=== PATIENT | male | born 1990 | race African-American/Black ===

== ENCOUNTER 2024-11-09 10:52 | Day surgery (SDC) | payer MEDICARE, SELFPAY ==
[2024-11-07 10:34] VITALS: BMI 35.3
[2024-11-09 12:56] VITALS: BP 136/75; PULSE 82; RESP 18; TEMP 36.7; O2SAT 98
[2024-11-09] MEDS: LACTATED RINGERS 1000ML 1,000 ML 50 ML IV (13:02)
--- NOTE | 2024-11-09 13:49 | EXP.HP ---
History of Present Illness *Admission Date: 11/09/24 *Reason for visit:: Abnormal CAT scan with change in bowel habits *History of present illness: Mr. Shea is a 34-year-old gentleman who is here for diagnostic colonoscopy secondary to a change in bowel habits and abnormal CAT scan. His CAT scan at [facility] that showed inflammation and swelling but the report is not available. The examination is deemed medically necessary for diagnostic colonoscopy. The patient has been seen, interviewed and examined prior to the procedure by both myself and the anesthesia provider. [facility] Disclaimer: The information contained in this section may have been updated after the patient was seen, as this information can be updated by other users. Medical History (Updated 11/09/24 @ 12:54 by Leia Barrera RN) No significant past medical history Surgical History (Updated 11/09/24 @ 12:54 by Leia Barrera RN) No significant past surgical history Family History (Updated 11/09/24 @ 12:54 by Leia Barrera RN) Other No significant family history Social History (Updated 11/09/24 @ 12:54 by Leia Barrera RN) Smoking Status: Current every day smoker alcohol intake: never substance use type: denies use current occupational status: unemployed Travel in the last 8 weeks: None Have you lived/traveled outside US in past 30 days?: No Contact w/someone who lives/traveled outside US past 30 days?: No Exposure to someone with infectious disease in past 14 days?: No Do you have a fever (greater than 100.4 F or 38 C)?: No Have you tested positive for COVID-19: No Exposed to someone with COVID-19 in past 14 days?: No Do you have a sore throat?: No Do you have a cough?: No Do you have any weakness?: No Do you have any diarrhea?: No Are you experiencing any unusual bleeding?: No Do you have any muscle aches/pain?: No Do you have any abdominal pain?: No Are you experiencing loss of taste or smell?: No Review of Systems Review of Systems Review of systems (narrative): Negative *Cardiovascular Comments: Negative *Gastrointestinal Comments: Negative *Genitourinary Comments: Negative *Musculoskeletal Comments: Negative *Neurologic Comments: Negative Meds Home Medications and Allergies Home Medications ?Medication ?Instructions ?Recorded ?Confirmed ?Type sertraline 100 mg tablet (Zoloft) 100 mg PO DAILY 08/15/24 11/09/24 History New Prescriptions to Start Prescriptions: Allergies Allergy/AdvReac Type Severity Reaction Status Date / Time No Known Allergies Allergy Verified 11/09/24 12:55 Exam Data for Last 24 hours Vital signs and Labs for Last 24 Hours: Temp Pulse Resp BP Pulse Ox O2 Del Method 98.1 F 82 18 136/75 98 Room Air 11/09/24 12:56 11/09/24 12:56 11/09/24 12:56 11/09/24 12:56 11/09/24 12:56 11/09/24 12:56 I & O for Last 24 hours: Intake & Output 11/06/24 11/07/24 11/08/24 11/09/24 23:59 23:59 23:59 23:59 Weight 275 lb *Routine HEENT Exam Head: Present normocephalic Eye: Present EOMI and PERRL ENT: Present mucous membranes moist *Routine Neck Exam Neck: Present supple *Routine Respiratory Exam Respiratory: Present CTA bilaterally *Routine Cardiovascular Exam Cardiovascular: Present RRR *Routine Abdominal Exam Abdominal: Present soft and normoactive bowel sounds; Absent tenderness *Routine Rectal Exam Rectal:: deferred *Routine Genitalia Exam Genitalia:: deferred *Routine Extremities Exam Extremities: Absent cyanosis, clubbing or edema *Routine Skin Exam Skin: Present warm; Absent rash *Routine Neurological Exam Neurological: Present alert and oriented X3 Assessment and Plan *Assessment and plan (1) Change in bowel habits: Status: Acute Category: Medical Code(s): R19.4 - Change in bowel habit (2) Constipation: Status: Acute Category: Medical Code(s): K59.00 - Constipation, unspecified (3) Abnormal CT scan, colon: Status: Acute Category: Medical Code(s): R93.3 - Abnormal findings on diagnostic imaging of other parts of digestive tract (4) Blood in stool: Status: Acute Category: Medical Code(s): K92.1 - Melena Plan A/P: 1. Change in bowel habits with constipation and abnormal CAT scan left colon is the preprocedural diagnosis. The patient will be anesthetized/sedated using MAC sedation. The patient has been seen and examined. Cardiac and lung assessment prior to the examination is stable. Proceed with planned diagnostic colonoscopy
--- NOTE | 2024-11-09 14:01 | P.PCN_ITS ---
[facility] Procedure Note Date: 11/09/24 Time: 14:17 Procedure Note:: Colonoscopy Procedure Report: Colonoscopy with cold snare polypectomy and monopolar ablation/coagulation of internal hemorrhoids Endoscopist: Tien Zuleta II, MD Referring physician: [facility], [address] [place] [address] , [place] [address] Date of Procedure: November 09, 2024 Equipment: Olympus 190 variable stiffness pediatric colonoscope Sedation: MAC sedation Indication: Mr. Shea is a 34-year-old gentleman who is here for diagnostic colonoscopy. He did have a change in his bowel habits about a year ago and he has had more constipation and going 2 or 3 days without a bowel movement. He has had some lower abdominal pain intermittently throughout the year. He did go to the emergency department in July and had a CAT scan that showed colonic inflammation . He does note some intermittent blood in the stool with his bowel movement and this last occurred a month or 2 ago. He reports no weight loss or family history of colon cancer. This is his first colonoscopy. Procedure: Prior to the procedure, a history and physical exam was performed, and patient's medications and allergies were reviewed. The risks, benefits and alternatives of the sedation and procedure were discussed with the patient. All questions were answered and informed consent was obtained. The patient was brought to the procedure room. Patient identification and proposed procedure were verified by the physician and the nurse. The patient was placed in a left lateral decubitus position and the scope was passed under direct vision. Throughout the procedure, the patient's blood pressure, pulse, and oxygen saturations were monitored continuously. The colonoscopy was accomplished without difficulty. The patient tolerated the procedure well. Findings: On digital rectal examination there was normal rectal tone. There were no external hemorrhoids. The colonoscope was introduced through the anal canal to the rectum and advanced to the cecum. The ileocecal valve and appendiceal orifice were identified. The scope was advanced a short distance into the ileum which appeared grossly normal. The scope was then withdrawn into the colon. The cecum, ascending, transverse, descending and sigmoid: Were grossly normal. There were no mucosal abnormalities identified. Within the rectum there were 3 diminutive 2 and 3 mm polyps that were removed via cold snare polypectomy (probable hyperplastic polyps). Upon retroflexion within the rectum there were grade 2 internal hemorrhoids. The columns of hemorrhoids were ablated/coagulated using monopolar force coagulation. The preparation was excellent throughout with [place] Preparation Score of 9. The cecal time was 12 minutes. Impression: 1. Diminutive rectal polyps x 3 (probable hyperplastic polyps) 2. Grade 2 internal hemorrhoids status post monopolar ablation/coagulation Plan: I would encourage a fiber bowel regimen (combined MiraLAX plus Citrucel mixed together every morning) on a long-term daily maintenance basis. I will follow- up the polyp histology.
[2024-11-09 14:03] VITALS: O2SAT 99
[2024-11-09 14:20] VITALS: BP 98/57; PULSE 87; RESP 18; O2SAT 99
[2024-11-09 14:30] VITALS: BP 125/81; PULSE 81; RESP 18; O2SAT 99
[2024-11-09 14:40] VITALS: BP 127/76; PULSE 80; RESP 18; O2SAT 99
--- NOTE | 2024-11-09 15:09 | EXP.ANES.CKL ---
[facility] Disclaimer: The information contained in this section may have been updated after the patient was seen, as this information can be updated by other users. Medical History (Updated 11/09/24 @ 12:54 by Leia Barrera RN) No significant past medical history Surgical History (Updated 11/09/24 @ 12:54 by Leia Barrera RN) No significant past surgical history Family History (Updated 11/09/24 @ 12:54 by Leia Barrera RN) Other No significant family history Social History (Updated 11/09/24 @ 12:54 by Leia Barrera RN) Smoking Status: Current every day smoker alcohol intake: never substance use type: denies use current occupational status: unemployed Travel in the last 8 weeks: None Have you lived/traveled outside US in past 30 days?: No Contact w/someone who lives/traveled outside US past 30 days?: No Exposure to someone with infectious disease in past 14 days?: No Do you have a fever (greater than 100.4 F or 38 C)?: No Have you tested positive for COVID-19: No Exposed to someone with COVID-19 in past 14 days?: No Do you have a sore throat?: No Do you have a cough?: No Do you have any weakness?: No Do you have any diarrhea?: No Are you experiencing any unusual bleeding?: No Do you have any muscle aches/pain?: No Do you have any abdominal pain?: No Are you experiencing loss of taste or smell?: No [facility] Anesthesia Checklist Patient Identification Patient Identification: Arm Band and Family Structural Data Admitted From: Home Planned Operative Procedure/s: Colonoscopy. Consent for Planned Operative Procedure(s) Verified: Yes Verified Documents: Surgical Consent and History and Physical NPO Status Verified Time NPO: 00:00 Additional verifications Patient : No Anesthesia Reactions: No Hx Blood Transfusions: No Blood Transfusion Reaction: No Cephalosporin Allergy: No Previous Colonoscopy: No Airway Assessment Mallampati Score:: Class III C-Spine Mobility Assessed: Yes TMJ Mobility Assessed: Yes Dentition: Good Dentition Neurological Assessment Level of Consciousness: Awake, Alert, Appropriate and Follows Commands Hx Seizures: No Numbness or tingling in extremities: No Anesthesia Plan Anesthesia Risk discussed: Yes ASA Class: II Anesthesia Type: MAC Preoperative Comments Pre-Operative Comments: Abdominal pain. Hemorrhoids. Polyps. Smoker. Bloody stools.
[2024-11-09 15:15] VITALS: BP 131/86; PULSE 79; RESP 18; O2SAT 99
== END 2024-11-09 15:15 | disposition home or self-care (01) ==
PROVIDERS: Visit Provider Internal Medicine Gastroenterology
PROC: 0DJD8ZZ Inspection of Lower Intestinal Tract, Via Natural or Artificial Opening Endoscopic (ICD-10-PCS; CPT 45378; principal; 2024-11-09 13:00)
DX: K63.5 Polyp of colon (principal); K64.1 Second degree hemorrhoids; K59.00 Constipation, unspecified; R93.3 Abnormal findings on diagnostic imaging of other parts of digestive tract; K92.1 Melena
CPT/HCPCS: 45385; 45388; J7120